=== PATIENT | female | born 1980 | race Caucasian/White ===

== ENCOUNTER → 2017-03-07 | Outpatient (CLI) | payer OTHER ==
[~2017-03-07] MED LIST: ADIPEX-P37.5 MG PO; FLONASEALLERGY NS; GLUCOPHAGE XR500 M1 PO; GLUCOPHAGE500 MG/TAB PO; HCTZ 25MG TAB25 MG PO; NORCO 325 MG-51 TAB PO; PRIL40 PO; PRINIVIL10 MG PO; PROTONIX 40MG T40 MG PO; WELLBUTRIN XL300 M1 PO; XANAX 1MG1 MG PO; ZOFRAN 4MG T4 MG/TAB PO; ZYRTEC 10MG10 MG PO
== END ==
LOC: BHSO 09:25
DX: Z01.818 Encounter for other preprocedural examination (principal)

== ENCOUNTER 2017-07-10 10:59 | Inpatient (IN) | payer OTHER ==
[~2017-07-10] VITALS: Ht 175.4 cm; Wt 182.6 kg
[2017-08-21] VITALS (12 sets, daily range): BP systolic 125–157; BP diastolic 53–86; PULSE 73–92; TEMP 97.7–98.5
[2017-08-22 02:36] VITALS: BP 145/78; PULSE 90; TEMP 98
[2017-08-22 06:00] VITALS: BP 150/70; PULSE 74; TEMP 98.3
[2017-08-22 10:00] VITALS: BP 135/68; PULSE 80; TEMP 97.7
[2017-08-22 13:29] VITALS: BP 131/70; PULSE 75; TEMP 98.3
[2017-08-22 17:45] VITALS: BP 130/67; PULSE 80; TEMP 98
[2017-08-22 21:15] VITALS: BP 155/73; PULSE 80; TEMP 99.2
[2017-08-23 03:38] VITALS: BP 135/77; PULSE 79; TEMP 98.1
[2017-08-23 09:52] VITALS: BP 150/79; PULSE 83; TEMP 98
[2017-08-23 12:57] VITALS: BP 157/95; PULSE 83; TEMP 97.5
[2017-08-23 17:32] VITALS: BP 135/65; PULSE 96; TEMP 98.2
[2017-08-23 21:47] VITALS: BP 134/80; PULSE 93; TEMP 98
[2017-08-24 01:38] VITALS: BP 130/74; PULSE 89; TEMP 98.8
[2017-08-24 05:42] VITALS: BP 141/69; PULSE 87; TEMP 98.8
[2017-08-24] MEDS ORDERED: NORCO 325 MG-7.1 TAB PO (09:10)
[2017-08-24] MEDS ORDERED: ZOFRAN 4MG T4 MG/TAB PO (09:10)
[2017-08-24 10:00] VITALS: BP 136/54; PULSE 82; TEMP 98.7
[2017-08-24 14:03] VITALS: BP 132/81; PULSE 87; TEMP 98.6
== END 2017-08-24 14:35 | disposition home or self-care (01) | DRG 621 ==
LOC: SURG 07-22 07:30 → INPTSU 08-21 09:49 → SURG 08-21 12:00
PROVIDERS: Surgery
PROC: 0DB64Z3 Excision of Stomach, Percutaneous Endoscopic Approach, Vertical (ICD-10-PCS; principal; 2017-08-21 12:00)
DX: E66.01 Morbid (severe) obesity due to excess calories (principal); Z68.44 Body mass index [BMI] 60.0-69.9, adult; I10 Essential (primary) hypertension; K21.9 Gastro-esophageal reflux disease without esophagitis; E28.2 Polycystic ovarian syndrome
CPT/HCPCS: A9284; J0330; J0690; J1100; J1170; J1885; J2270; J2405; J2550; J2704; J3010; J7030

== ENCOUNTER → 2017-07-23 | Outpatient (CLI) | payer OTHER | LOC: LIGHT 13:50 | DX: Z01.818 Encounter for other preprocedural examination (principal); E66.01 Morbid (severe) obesity due to excess calories ==

== ENCOUNTER → 2017-07-25 | Outpatient (CLI) | payer OTHER ==
[2017-07-25 09:15] LABS: MEAN CELL VOLUME 73 fl (80.0-100.0); MEAN CORPUSCULAR HGB CONC 30 g/dl (33.0-37.0); MEAN PLATELET VOLUME 10.1 fl (7.4-10.4); PLATELET COUNT 268 K/mm3 (130-400); RED BLOOD COUNT 4.87 M/mm3 (4.10-5.30); REDCELL DISTRIBUTION WIDTH-CV 17.7 % (11.5-14.5)
[2017-07-25 09:25] LABS: HEMATOCRIT 35.6 % (37.0-47.0); HEMOGLOBIN 10.6 g/dl (12.5-16.0); MEAN CORPUSCULAR HEMOGLOBIN 22 pg (27.0-31.0)
[2017-07-25 09:28] LABS: ADJUSTED CALCIUM 9.4 mg/dL (8.4-10.2); BILIRUBIN,TOTAL 0.5 mg/dL (0.0-1.0); CALCIUM 9.4 mg/dL (8.4-10.2); CREATININE, serum 0.69 mg/dL (0.52-1.25); POTASSIUM 4.1 mmol/L (3.4-5.0); TOTAL PROTEIN 7.1 gm/dL (6.4-8.2)
== END ==
LOC: COL.LAB 08:35
PROVIDERS: Surgery
DX: Z01.812 Encounter for preprocedural laboratory examination (principal); E66.01 Morbid (severe) obesity due to excess calories

== ENCOUNTER → 2017-08-05 | Outpatient (CLI) | payer OTHER ==
[~2017-08-05] VITALS: Ht 176.5 cm; Wt 190.7 kg
[2017-08-05 15:10] VITALS: BP 124/68; PULSE 70
== END ==
LOC: LIGHT 08:55
DX: I10 Essential (primary) hypertension (principal); E28.2 Polycystic ovarian syndrome; E66.01 Morbid (severe) obesity due to excess calories; Z68.44 Body mass index [BMI] 60.0-69.9, adult; Z71.3 Dietary counseling and surveillance; E16.1 Other hypoglycemia

== ENCOUNTER → 2017-09-02 | Outpatient (CLI) | payer OTHER ==
[~2017-09-02] VITALS: Ht 175.4 cm; Wt 176.0 kg
[~2017-09-02] MED LIST changes: +NORCO 325 MG-7.1 TAB PO
[2017-09-02 15:52] VITALS: BP 138/88; PULSE 60
== END ==
LOC: LIGHT 10:13
DX: I10 Essential (primary) hypertension (principal); E28.2 Polycystic ovarian syndrome; E66.01 Morbid (severe) obesity due to excess calories; Z68.43 Body mass index [BMI] 50.0-59.9, adult; Z71.3 Dietary counseling and surveillance; E16.1 Other hypoglycemia

== ENCOUNTER → 2017-09-30 | Outpatient (CLI) | payer OTHER ==
[~2017-09-30] VITALS: Ht 175.3 cm; Wt 172.1 kg
[~2017-09-30] MED LIST changes: +BIOTIN10000 MC1 PO; +CALCIUM 600MG+D1 TAB PO; +MULTI-VITAMIN W1 TA1 PO; +VITAMIN B COMPL1 SGL PO; +VITAMIN D31000 IU PO
[2017-09-30 15:39] VITALS: BP 124/76; PULSE 64
== END ==
LOC: LIGHT 08:34
DX: I10 Essential (primary) hypertension (principal); E28.2 Polycystic ovarian syndrome; E66.01 Morbid (severe) obesity due to excess calories; Z68.43 Body mass index [BMI] 50.0-59.9, adult; Z71.3 Dietary counseling and surveillance; E16.1 Other hypoglycemia

== ENCOUNTER → 2017-11-25 | Outpatient (CLI) | payer OTHER ==
[~2017-11-25] VITALS: Ht 175.3 cm; Wt 164.7 kg
== END ==
LOC: LIGHT 09:44
DX: I10 Essential (primary) hypertension (principal); E28.2 Polycystic ovarian syndrome; E66.01 Morbid (severe) obesity due to excess calories; Z68.43 Body mass index [BMI] 50.0-59.9, adult; Z71.3 Dietary counseling and surveillance; E16.1 Other hypoglycemia
CPT/HCPCS: G0463

== ENCOUNTER → 2018-01-22 | Outpatient (CLI) | payer OTHER ==
[2018-01-22 09:06] LABS: HEMATOCRIT 44.2 % (37.0-47.0); MEAN CELL VOLUME 84 fl (80.0-100.0); MEAN CORPUSCULAR HEMOGLOBIN 27 pg (27.0-31.0); MEAN CORPUSCULAR HGB CONC 32 g/dl (33.0-37.0); MEAN PLATELET VOLUME 10.1 fl (7.4-10.4); PLATELET COUNT 252 K/mm3 (130-400); RED BLOOD COUNT 5.26 M/mm3 (4.10-5.30); REDCELL DISTRIBUTION WIDTH-CV 16.2 % (11.5-14.5)
[2018-01-22 09:23] LABS: ALBUMIN 4.5 gm/dL (3.5-5.0); BILIRUBIN,TOTAL 0.3 mg/dL (0.0-1.0); CALCIUM 9.6 mg/dL (8.4-10.2); CREATININE, serum 0.69 mg/dL (0.52-1.25); POTASSIUM 4.3 mmol/L (3.4-5.0); TOTAL PROTEIN 7.6 gm/dL (6.4-8.2)
[2018-01-22 09:30] LABS: PRE ALBUMIN 24.3 mg/dL (17.6-36.0)
== END ==
LOC: COL.LAB 08:35
PROVIDERS: Surgery
DX: Z01.89 Encounter for other specified special examinations (principal)

== ENCOUNTER 2018-02-05 12:10 | Emergency (ER) | payer OTHER ==
[~2018-02-05] VITALS: Ht 175.3 cm; Wt 154.5 kg
[2018-02-05 12:30] VITALS: BP 159/80; TEMP 98.2
[2018-02-05 13:20] LABS: BASO % 0.4 % (0.0-2.0); EOS # 0.3 (0.0-0.7); EOS % 5.8 % (0-4.0); GRAN # 3.5 (1.4-6.5); GRAN % 63.9 % (42.2-75.2); HEMATOCRIT 41.9 % (37.0-47.0); HEMOGLOBIN 13.9 g/dl (12.5-16.0); LYMPH # 1.2 (1.2-3.4); LYMPH % 22.2 % (20.0-51.0); MEAN CELL VOLUME 83 fl (80.0-100.0); MEAN CORPUSCULAR HEMOGLOBIN 27 pg (27.0-31.0); MEAN CORPUSCULAR HGB CONC 33 g/dl (33.0-37.0); MEAN PLATELET VOLUME 9.8 fl (7.4-10.4); MONO # 0.4 (0.1-0.6); MONO % 7.2 % (1.7-9.3); PLATELET COUNT 179 K/mm3 (130-400); RED BLOOD COUNT 5.08 M/mm3 (4.10-5.30); REDCELL DISTRIBUTION WIDTH-CV 15.4 % (11.5-14.5)
[2018-02-05 13:32] LABS: ALBUMIN 4.1 gm/dL (3.5-5.0); BILIRUBIN,TOTAL 0.5 mg/dL (0.0-1.0); CALCIUM 9.3 mg/dL (8.4-10.2); CREATININE, serum 0.57 mg/dL (0.52-1.25); POTASSIUM 3.8 mmol/L (3.4-5.0)
[2018-02-05] MEDS ORDERED: ZOFRAN ODT4 MG PO (14:14)
[2018-02-05 14:27] VITALS: PULSE 70
== END 2018-02-05 14:27 | disposition home or self-care (01) ==
LOC: COL.ER 12:10
PROVIDERS: Physician Assistant
DX: E86.0 Dehydration (principal); R19.7 Diarrhea, unspecified; R11.0 Nausea; R74.0 Nonspecific elevation of levels of transaminase and lactic acid dehydrogenase [LDH]; I10 Essential (primary) hypertension; E66.9 Obesity, unspecified; Z68.43 Body mass index [BMI] 50.0-59.9, adult; Z98.84 Bariatric surgery status; Z90.49 Acquired absence of other specified parts of digestive tract; Z79.51 Long term (current) use of inhaled steroids
CPT/HCPCS: J2405; J7030

== ENCOUNTER → 2018-02-17 | Outpatient (CLI) | payer OTHER ==
[~2018-02-17] VITALS: Ht 175.3 cm; Wt 155.6 kg
[~2018-02-17] MED LIST changes: -PRINIVIL10 MG PO; +PRINIVIL5 MG PO; +ZOFRAN ODT4 MG PO
[2018-02-17 16:23] VITALS: BP 118/68; PULSE 80
== END ==
LOC: LIGHT 13:30
DX: I10 Essential (primary) hypertension (principal); E28.2 Polycystic ovarian syndrome; E66.01 Morbid (severe) obesity due to excess calories; Z68.43 Body mass index [BMI] 50.0-59.9, adult; Z71.3 Dietary counseling and surveillance; E16.1 Other hypoglycemia
CPT/HCPCS: G0463

== ENCOUNTER 2018-08-01 16:19 | Emergency (ER) | payer OTHER ==
[~2018-08-01] VITALS: Ht 175.3 cm; Wt 126.4 kg
[2018-08-01 16:25] VITALS: BP 137/74; TEMP 93.7
[2018-08-01 17:00] LABS: BASO # 0.1 (0.0-0.2); BASO % 0.4 % (0.0-2.0); EOS # 0.2 (0.0-0.7); EOS % 1.3 % (0-4.0); GRAN # 10.5 (1.4-6.5); GRAN % 80.6 % (42.2-75.2); HEMATOCRIT 45.1 % (37.0-47.0); HEMOGLOBIN 14.9 g/dl (12.5-16.0); LYMPH # 1.7 (1.2-3.4); MEAN CELL VOLUME 87 fl (80.0-100.0); MEAN CORPUSCULAR HEMOGLOBIN 29 pg (27.0-31.0); MEAN CORPUSCULAR HGB CONC 33 g/dl (33.0-37.0); MEAN PLATELET VOLUME 10.5 fl (7.4-10.4); MONO # 0.5 (0.1-0.6); MONO % 4.1 % (1.7-9.3); PLATELET COUNT 229 K/mm3 (130-400); RED BLOOD COUNT 5.18 M/mm3 (4.10-5.30); REDCELL DISTRIBUTION WIDTH-CV 13.6 % (11.5-14.5)
[2018-08-01 17:10] LABS: ALBUMIN 4.4 gm/dL (3.5-5.0); BILIRUBIN,TOTAL 0.3 mg/dL (0.0-1.0); CALCIUM 9.3 mg/dL (8.4-10.2); CREATININE, serum 0.64 mg/dL (0.52-1.25); POTASSIUM 3.2 mmol/L (3.4-5.0); TOTAL PROTEIN 7.8 gm/dL (6.4-8.2)
[2018-08-01 17:28] LABS: COLLECTION METHOD CLEAN CATCH
[2018-08-01 17:42] LABS: MUCOUS Present /lpf; PH 5 (5-8); URINE APPEARANCE Hazy; URINE BACTERIA Rare /hpf; URINE BILIRUBIN Negative (NEGATIVE); URINE BLOOD 2+ (NEGATIVE); URINE COLOR Amber; URINE GLUCOSE Negative (NEGATIVE); URINE KETONE 1+ (NEGATIVE); URINE LEUKOCYTE ESTERASE Negative (NEGATIVE); URINE NITRATE Negative (NEGATIVE); URINE PROTEIN(semi-quant) 1+ (NEGATIVE); URINE RBC >50 /hpf
[2018-08-01] MEDS ORDERED: ZOFRAN ODT4 MG PO (21:16)
[2018-08-01] MEDS ORDERED: NORCO 325 MG-51 TAB PO (21:16)
[2018-08-01 21:54] VITALS: PULSE 67
== END 2018-08-01 21:54 | disposition home or self-care (01) ==
LOC: COL.ER 16:19
PROVIDERS: Emergency Medicine
DX: N83.291 Other ovarian cyst, right side (principal); I10 Essential (primary) hypertension; F17.210 Nicotine dependence, cigarettes, uncomplicated; Z90.49 Acquired absence of other specified parts of digestive tract; Z79.51 Long term (current) use of inhaled steroids
CPT/HCPCS: J1170; J2765; J7030

== ENCOUNTER 2018-08-02 21:54 | Emergency (ER) | payer OTHER ==
[~2018-08-02] VITALS: Ht 175.3 cm; Wt 129.5 kg
[2018-08-02 21:56] VITALS: BP 189/89; TEMP 98.2
[2018-08-02 22:37] LABS: COLLECTION METHOD CLEAN CATCH
[2018-08-02 22:40] LABS: BASO # 0.1 (0.0-0.2); BASO % 0.4 % (0.0-2.0); EOS # 0.3 (0.0-0.7); EOS % 2.1 % (0-4.0); GRAN # 7.9 (1.4-6.5); GRAN % 62.9 % (42.2-75.2); HEMATOCRIT 43.4 % (37.0-47.0); HEMOGLOBIN 14.3 g/dl (12.5-16.0); LYMPH # 3.6 (1.2-3.4); LYMPH % 28.5 % (20.0-51.0); MEAN CELL VOLUME 87 fl (80.0-100.0); MEAN CORPUSCULAR HEMOGLOBIN 29 pg (27.0-31.0); MEAN CORPUSCULAR HGB CONC 33 g/dl (33.0-37.0); MEAN PLATELET VOLUME 10.7 fl (7.4-10.4); MONO # 0.7 (0.1-0.6); MONO % 5.7 % (1.7-9.3); PLATELET COUNT 233 K/mm3 (130-400); RED BLOOD COUNT 5.01 M/mm3 (4.10-5.30); REDCELL DISTRIBUTION WIDTH-CV 13.8 % (11.5-14.5)
[2018-08-02 22:53] LABS: ALBUMIN 4.1 gm/dL (3.5-5.0); BILIRUBIN,TOTAL 0.2 mg/dL (0.0-1.0); C-REACTIVE PROTEIN 0.7 mg/dL (0.0-0.9); CALCIUM 9.4 mg/dL (8.4-10.2); CREATININE, serum 0.56 mg/dL (0.52-1.25); POTASSIUM 3.9 mmol/L (3.4-5.0); TOTAL PROTEIN 7.3 gm/dL (6.4-8.2)
[2018-08-02 22:55] LABS: MUCOUS Present /lpf; PH 5 (5-8); URINE APPEARANCE Hazy; URINE BACTERIA None Seen /hpf; URINE BILIRUBIN Negative (NEGATIVE); URINE BLOOD 2+ (NEGATIVE); URINE CALCIUM OXALATE CRYSTAL Present /hpf; URINE COLOR Yellow; URINE GLUCOSE Negative (NEGATIVE); URINE KETONE Negative (NEGATIVE); URINE LEUKOCYTE ESTERASE Negative (NEGATIVE); URINE NITRATE Negative (NEGATIVE); URINE PROTEIN(semi-quant) 1+ (NEGATIVE); URINE RBC 20-50 /hpf; URINE UROBILINOGEN >=4.0 mg/dL (NEGATIVE)
[2018-08-03] MEDS ORDERED: PERCOCET 325 MG1 TA2 PO (00:46)
[2018-08-03] MEDS ORDERED: FLAGYL500 MG PO (00:46)
[2018-08-03 01:27] VITALS: PULSE 64
== END 2018-08-03 01:25 | disposition home or self-care (01) ==
LOC: COL.ER 21:54
PROVIDERS: Emergency Medicine
DX: N83.202 Unspecified ovarian cyst, left side (principal); N83.201 Unspecified ovarian cyst, right side; E66.9 Obesity, unspecified; F17.210 Nicotine dependence, cigarettes, uncomplicated; Z98.890 Other specified postprocedural states; Z90.49 Acquired absence of other specified parts of digestive tract; Z79.51 Long term (current) use of inhaled steroids; Z68.41 Body mass index [BMI] 40.0-44.9, adult
CPT/HCPCS: J1170; J2405; J7030; Q9967